=== PATIENT | female | born 1970 | race Caucasian/White ===

== ENCOUNTER 2016-09-14 13:38 | Emergency (ER) | payer OTHER ==
[2016-09-14 16:20] LABS: UA SPECIFIC GRAVITY 1.015 (1.005-1.035); microscopic required? YES; urine erythrocyte TRACE (NEGATIVE)
[2016-09-14 20:06] VITALS: BP 122/75
== END 2016-09-14 20:06 | disposition home or self-care (01) ==
LOC: ED 13:38
DX: K80.50 Calculus of bile duct without cholangitis or cholecystitis without obstruction (principal); E66.9 Obesity, unspecified; Z87.19 Personal history of other diseases of the digestive system
CPT/HCPCS: Q0092

== ENCOUNTER 2016-11-28 07:30 | Emergency (ER) | payer OTHER ==
[~2016-11-28] VITALS: Ht 165.1 cm; Wt 103.4 kg
[2016-11-28 09:10] VITALS: BP 107/57
== END 2016-11-28 09:08 | disposition home or self-care (01) ==
LOC: ED 07:30
DX: K80.50 Calculus of bile duct without cholangitis or cholecystitis without obstruction (principal); E66.9 Obesity, unspecified
CPT/HCPCS: J1885; J3010; Q0162

== ENCOUNTER 2017-06-21 19:37 | Emergency (ER) | payer OTHER ==
[~2017-06-21] VITALS: Ht 165.1 cm; Wt 95.9 kg
[2017-06-21 19:56] VITALS: Ht 165.1 cm; Wt 95.9 kg
[2017-06-21 21:36] LABS: BASOPHIL % 0.4 % (0-2); PLATELET COUNT 242 x10^3mcL (130-400); RED CELL DISTRIBUTION WIDTH 13.6 % (11.5-14.5)
[2017-06-21 21:39] LABS: CALCIUM 9.3 mg/dL (8.5-10.1); CARBON DIOXIDE 26.7 mmol/L (21-32); CHLORIDE SERUM 104 mmol/L (98-107); CREATININE SERUM 0.8 mg/dL (0.6-1.0); GFR1 > 60 mL/min; GLUCOSE SERUM 108 mg/dL (74-106); POTASSIUM SERUM 4.1 mmol/L (3.5-5.1); SODIUM SERUM 143 mmol/L (136-145)
[2017-06-21 21:44] LABS: ALKALINE PHOSPHATASE 81 U/L (46-116); ALT/SGPT 27 U/L (14-59); AST/SGOT 19 U/L (15-37); BILIRUBIN TOTAL 0.18 mg/dL (0.20-1.00); TOTAL PROTEIN, SERUM 8.4 g/dL (6.4-8.2)
[2017-06-21 22:48] VITALS: BP 121/63
== END 2017-06-21 22:48 | disposition home or self-care (01) ==
LOC: ED 19:37
PROVIDERS: Emergency Medicine
DX: R51 Headache (principal)
CPT/HCPCS: J1100; J2765